=== PATIENT | male | born 1945 | race Caucasian/White ===

== ENCOUNTER 2018-12-04 08:51 | Day surgery (SDC) | payer OTHER ==
[~2018-12-04] VITALS: Ht 165.1 cm; Wt 74.8 kg
[~2018-12-04 08:51] MED LIST: ANOR1AER INH; CALTTAB6 PO; CENT1TAB PO; FLAX10002 PO; GLUC1TAB58 PO; LOSA50TA88 PO; NS 1,000 ML IV ONE; PRAV20TA2 PO; VITA200012 PO
[2018-12-04] MEDS ORDERED: PROPOFOL 200 MG/20 ML VIAL As Ordered ONE ×2 (10:02→10:23)
[2018-12-04] MEDS ORDERED: LIDOCAINE 2% INJ 100 MG/5 ML SDV (FOR ANES.) As Ordered ONE (10:02)
--- NOTE | 2018-12-04 10:34 | ROOR ---
Patient Name: Zach Valerio Procedure Date: 12/04/2018 10:15 AM Date of : 1945 Age: 73 Room: [facility] Gender: Male Note Status: Finalized Procedure: Total Colonoscopy to Cecum Indications: Screening for colorectal malignant neoplasm, Last colonoscopy 10 years ago Providers: Aureliano Boyd MD Referring MD: VIELKA WEISS JR, MD Requesting Provider: Medicines: Monitored Anesthesia Care Complications: No immediate complications. Procedure: Pre-Anesthesia Assessment: - The heart rate, respiratory rate, oxygen saturations, blood pressure, adequacy of pulmonary ventilation, and response to care were monitored throughout the procedure. The Colonoscope was introduced through the anus and advanced to the cecum, identified by appendiceal orifice and ileocecal valve. The colonoscopy was performed without difficulty. The patient tolerated the procedure well. The quality of the bowel preparation was excellent. Findings: The perianal and digital rectal examinations were normal. Non-bleeding internal hemorrhoids were found during retroflexion. The hemorrhoids were small and Grade I (internal hemorrhoids that do not prolapse). No other significant abnormalities were identified in a careful examination of the remainder of the colon. The exam was otherwise without abnormality on direct and retroflexion views. Impression: - Non-bleeding internal hemorrhoids. - The examination was otherwise normal on direct and retroflexion views. - No specimens collected. - The exam was otherwise normal to the cecum. Recommendation: - Patient has a contact number available for emergencies. The signs and symptoms of potential delayed complications were discussed with the patient. Return to normal activities tomorrow. Written discharge instructions were provided to the patient. - High fiber diet. - Discharge patient to home. - Continue present medications. - Repeat colonoscopy for symptoms only. - Return to referring physician. - The findings and recommendations were discussed with the patient's family. Aureliano Boyd MD Aureliano Boyd MD 12/04/2018 10:34:02 AM Electronically signed by Aureliano Boyd MD Number of Addenda: 0 Note Initiated On: 12/04/2018 10:15 AM Estimated Blood Loss: Estimated blood loss: none.
[2018-12-04 11:05] VITALS: BP 107/67
== END 2018-12-04 11:08 | disposition home or self-care (01) ==
LOC: M OPP 08:51
PROVIDERS: ATTEND Internal Medicine Gastroenterology
DX: Z12.11 Encounter for screening for malignant neoplasm of colon (principal); K64.0 First degree hemorrhoids

== ENCOUNTER → 2022-05-02 | Outpatient (REF) | payer MEDICARE, OTHER ==
[~2022-05-02] MED LIST changes: +LOSA50TA28 PO; -LOSA50TA88 PO; -NS 1,000 ML IV ONE
== END ==
LOC: M LAB REF 12:12
PROVIDERS: ATTEND Internal Medicine
DX: M15.9 Polyosteoarthritis, unspecified (principal)

== ENCOUNTER 2024-03-08 09:26 | Emergency (ER) | payer MEDICARE, OTHER ==
[~2024-03-08] VITALS: Ht 165.1 cm; Wt 78.6 kg
[2024-03-08] MEDS: LIDOCAINE 1% MDV 20ML VIAL SC ONE (10:55)
[2024-03-08] MEDS ORDERED: LIDOCAINE 1% MDV 20ML VIAL As Ordered ONE (10:55)
[2024-03-08] MEDS: BOOSTRIX VACCINE (TETANUS/DIPHTH/ACEL. PERTUSSIS) 0.5ML SYR IM.IMMUN ONE (11:47)
[2024-03-08 14:13] VITALS: BP 164/77; TEMP 96.8; O2SAT 97
== END 2024-03-08 14:32 | disposition home or self-care (01) ==
LOC: M ED 09:26
DX: S01.412A Laceration without foreign body of left cheek and temporomandibular area, initial encounter (principal); S01.312A Laceration without foreign body of left ear, initial encounter; S06.0XAA Concussion with loss of consciousness status unknown, initial encounter; W01.118A Fall on same level from slipping, tripping and stumbling with subsequent striking against other sharp object, initial encounter; Y92.71 Barn as the place of occurrence of the external cause; Y93.89 Activity, other specified; Y99.9 Unspecified external cause status; I10 Essential (primary) hypertension; Z96.642 Presence of left artificial hip joint; Z79.899 Other long term (current) drug therapy; Z88.0 Allergy status to penicillin; Z88.8 Allergy status to other drugs, medicaments and biological substances

== ENCOUNTER → 2025-05-29 | Outpatient (CLI) | payer MEDICARE, OTHER ==
[~2025-05-29] MED LIST changes: +LIDO1ADH93 TD; -PRAV20TA2 PO; +PRAV20TA78 PO
== END ==
LOC: M PLARAD 08:18
PROVIDERS: ATTEND Internal Medicine
DX: R42 Dizziness and giddiness (principal)